=== PATIENT | male | born 1965 | race Hispanic/Latino ===

== ENCOUNTER 2017-11-15 13:29 | Emergency (ER) | payer OTHER | END 2017-11-15 14:58 | disposition left against medical advice (07) | LOC: EDH 13:29 | DX: Z53.21 Procedure and treatment not carried out due to patient leaving prior to being seen by health care provider (principal); I10 Essential (primary) hypertension; Z72.0 Tobacco use ==

== ENCOUNTER 2020-10-10 21:07 | Emergency (ER) | payer OTHER ==
[2020-10-10] MEDS ORDERED: LORAZEPAM 1 MG TABLET ONE (21:29)
== END 2020-10-10 22:03 | disposition home or self-care (01) ==
LOC: EDH 21:07
DX: F41.1 Generalized anxiety disorder (principal); I10 Essential (primary) hypertension; Z87.891 Personal history of nicotine dependence